=== PATIENT | female | born 1940 ===

== ENCOUNTER → 2018-01-18 10:37 | Outpatient (CLI) | payer OTHER | END | disposition home or self-care (01) | LOC: LAB 10:37 | DX: F33.1 Major depressive disorder, recurrent, moderate (principal); F32.2 Major depressive disorder, single episode, severe without psychotic features ==

== ENCOUNTER 2019-10-31 20:25 | Inpatient (IN) | payer OTHER ==
[~2019-10-31] VITALS: Ht 121.9 cm; Wt 5.0 kg
[2019-10-31] MEDS ORDERED: SERTRALINE HCL50 MG PO (20:47)
[2019-10-31] MEDS ORDERED: METFORMIN HCL500 M4 PO (20:47)
[2019-11-03] MEDS ORDERED: SERTRALINE HCL50 MG PO (09:26)
== END 2019-11-04 16:41 | disposition designated cancer center or children's hospital (05) | DRG 280 ==
LOC: ER 20:25 → SEC-K 11-01 10:05 → SURH 11-01 10:05 → SEC-K 11-01 11:11 → SURH 11-01 12:09
PROVIDERS: ADMIT Internal Medicine; ATTEND Internal Medicine
PROC: B24BZZZ Ultrasonography of Heart with Aorta (ICD-10-PCS; principal; 2019-11-01)
PROC: 4A12X4Z Monitoring of Cardiac Electrical Activity, External Approach (ICD-10-PCS; 2019-11-01)
DX: I21.4 Non-ST elevation (NSTEMI) myocardial infarction (principal); I50.23 Acute on chronic systolic (congestive) heart failure; I24.9 Acute ischemic heart disease, unspecified; K21.9 Gastro-esophageal reflux disease without esophagitis; I11.0 Hypertensive heart disease with heart failure; E11.65 Type 2 diabetes mellitus with hyperglycemia; E66.09 Other obesity due to excess calories; Z79.4 Long term (current) use of insulin; Z03.818 Encounter for observation for suspected exposure to other biological agents ruled out